=== PATIENT | female | born 1940 | race Caucasian/White ===

== ENCOUNTER 2024-04-17 09:16 | Inpatient (IN) ==
[2024-04-17 10:09] LABS: Basophils # (Auto) 0.03 K/mcL (0.00-0.30); Basophils % (Auto) 0.5 % (0.0-2.0); Eosinophils # (Auto) 0.04 K/mcL (0.00-0.70); Eosinophils % (Auto) 0.7 % (0.0-7.0); Hemoglobin 15.4 g/dL (11.2-15.7); Lymphocytes # (Auto) 1.92 K/mcL (1.50-4.80); Lymphocytes % (Auto) 31.5 % (15.5-49.0); Mean Cell Volume 103.1 fL (80.0-100.0); Mean Corpuscular HGB Conc 32.8 g/dL (31.0-36.0); Mean Platelet Volume 9.6 fL (8.8-12.5); Monocytes # (Auto) 0.54 K/mcL (0.10-0.90); Monocytes % (Auto) 8.9 % (1.0-12.0); Neutrophils % (Auto) 58.2 % (38.0-78.0); Platelet Count 222 K/mcL (140-440); RBC 4.56 M/mcL (3.59-5.38); Red Cell Distribution Width 14.2 % (11.5-14.5); WBC 6.1 K/mcL (4.5-11.0)
[2024-04-17 10:27] LABS: Thyroid Stimulating Hormone 4.56 uIU/mL (0.27-5.01)
[2024-04-17 10:55] LABS: ALT/SGPT 24 U/L (<40); AST/SGOT 27 U/L (<32); Albumin 4.1 gm/dL (3.2-5.2); Albumin/Globulin Ratio 1.7 (1.0-2.3); Alkaline Phosphatase 58 U/L (39-117); Bilirubin,Total 0.8 mg/dL (0.1-1.0); Blood Urea Nitrogen 37 mg/dL (8-23); Carbon Dioxide 24 mmol/L (22-30); Chloride 96 mmol/L (96-108); Globulin 2.4 gm/dL (2.2-3.7); Glomerular Filtration Rate 25; Glucose 117 mg/dL (70-105); Potassium 3.4 mmol/L (3.3-5.1); Sodium 138 mmol/L (133-145)
[2024-04-17 11:45] LABS: Appearance,Urine Clear (Clear); Bacteria,Urine 0 /hpf (0); Bilirubin,Urine Negative (Negative); Color,Urine Yellow; Glucose,Urine (UA) Negative (Negative); Ketones,Urine Negative (Negative); Leukocyte Esterase,Urine Small /uL (Negative); Nitrate,Urine Negative (Negative); Protein,Urine Negative (Negative); Urine Blood Negative ery/mcL (Negative); Urine RBC 0 /hpf (0-3); Urine Squamous Epithelial Cell 0 /hpf (0-4); Urine WBC 0 /hpf (0-4); Urobilinogen,Urine Normal
[2024-04-17] MEDS: 0.9 % SODIUM CHLORIDE 500 ML IV ONE (12:07)
[2024-04-17] MEDS ORDERED: POTASSIUM CHLORIDE 20 MEQ TABLET PO PRN ×2 (16:21)
[2024-04-17] MEDS ORDERED: MAGNESIUM SULFATE 2 GM/50 ML BAG IV PRN (16:21)
[2024-04-17] MEDS ORDERED: SENNOSIDES 1 TABLET PO PRN (16:21)
[2024-04-17] MEDS ORDERED: POTASSIUM CHLORIDE 40 MEQ in DEXTROSE 5% IN WATER 500 ML IV PRN (16:21)
[2024-04-17] MEDS ORDERED: LABETALOL HCL 20 MG/4 ML VIAL IV PRN (16:21)
[2024-04-17] MEDS ORDERED: IPRATROPIUM/ALBUTEROL 3 ML AMPUL.NEB NEB PRN (16:21)
[2024-04-17] MEDS ORDERED: POLYETHYLENE GLYCOL 3350 17 GM PACKET PO PRN (16:21)
[2024-04-17] MEDS ORDERED: METOPROLOL TARTRATE 5 MG/5 ML VIAL IV PRN (16:21)
[2024-04-17] MEDS ORDERED: METOCLOPRAMIDE 10 MG/2 ML VIAL IV PRN (16:21)
[2024-04-17] MEDS: ONDANSETRON 4 MG/2 ML VIAL IV PRN (17:04)
[2024-04-17] MEDS: DOCUSATE SODIUM 100 MG CAPSULE PO SCH (22:13)
[2024-04-17] MEDS: RIVAROXABAN 15 MG TABLET PO SCH (22:14)
[2024-04-18 06:34] LABS: ALT/SGPT 20 U/L (<40); AST/SGOT 24 U/L (<32); Albumin/Globulin Ratio 1.9 (1.0-2.3); Alkaline Phosphatase 51 U/L (39-117); Bilirubin,Direct 0.4 mg/dL (<0.3); Bilirubin,Total 0.9 mg/dL (0.1-1.0); Blood Urea Nitrogen 38 mg/dL (8-23); Calcium 9.5 mg/dL (8.6-10.4); Carbon Dioxide 23 mmol/L (22-30); Chloride 101 mmol/L (96-108); Globulin 2.1 gm/dL (2.2-3.7); Glomerular Filtration Rate 34; Glucose 111 mg/dL (70-105); Lactate Dehydrogenase 133 U/L (135-225); Phosphorous 2.9 mg/dL (2.5-4.5); Potassium 3.6 mmol/L (3.3-5.1); Sodium 139 mmol/L (133-145); Triglycerides 121 mg/dL (<150); Uric Acid 9.7 mg/dL (2.5-8.0)
[2024-04-18] MEDS: LEVOTHYROXINE 25 MCG TABLET PO SCH (07:34)
[2024-04-18] MEDS: METOPROLOL SUCCINATE 50 MG TAB.XL.24H PO SCH (08:44)
[2024-04-18] MEDS: ATORVASTATIN 10 MG TABLET PO SCH (08:44)
[2024-04-18] MEDS ORDERED: ENOXAPARIN 30 MG/0.3 ML SYRINGE SQ SCH (09:00)
[2024-04-18] MEDS: METOPROLOL SUCCINATE 50 MG TAB.XL.24H PO ONE (09:15)
[2024-04-18] MEDS: rOPINIRole 0.25 MG TABLET PO SCH (20:23)
[2024-04-18] MEDS: ACETAMINOPHEN 325 MG TABLET PO PRN (20:23)
[2024-04-19 06:36] LABS: ALT/SGPT 18 U/L (<40); AST/SGOT 23 U/L (<32); Albumin 3.7 gm/dL (3.2-5.2); Albumin/Globulin Ratio 1.9 (1.0-2.3); Alkaline Phosphatase 60 U/L (39-117); Bilirubin,Direct 0.3 mg/dL (<0.3); Bilirubin,Total 0.7 mg/dL (0.1-1.0); Blood Urea Nitrogen 40 mg/dL (8-23); Calcium 9.2 mg/dL (8.6-10.4); Carbon Dioxide 25 mmol/L (22-30); Chloride 103 mmol/L (96-108); Glomerular Filtration Rate 41; Glucose 96 mg/dL (70-105); Lactate Dehydrogenase 119 U/L (135-225); Phosphorous 2.5 mg/dL (2.5-4.5); Potassium 3.6 mmol/L (3.3-5.1); Sodium 139 mmol/L (133-145); Triglycerides 96 mg/dL (<150); Uric Acid 8.7 mg/dL (2.5-8.0)
[2024-04-19 07:52] VITALS: O2SAT 98
[2024-04-19] MEDS: METOPROLOL SUCCINATE 50 MG TAB.XL.24H PO SCH (08:03)
[2024-04-19 14:34] VITALS: TEMP 98
== END 2024-04-19 14:01 | disposition home or self-care (01) | DRG 683 ==
LOC: ED 09:16 → ICU 16:11
PROVIDERS: ADMIT Internal Medicine; ATTEND Internal Medicine